=== PATIENT | female | born 1985 | race Caucasian/White ===

== ENCOUNTER 2017-03-23 08:37 | Emergency (ER) | payer OTHER ==
[~2017-03-23] VITALS: Ht 162.6 cm; Wt 68.0 kg
[2017-03-23] MEDS ORDERED: PERCOCET 5-3251 EACH PO (10:35)
== END 2017-03-23 11:06 | disposition home or self-care (01) ==
LOC: ED 08:37
DX: K80.50 Calculus of bile duct without cholangitis or cholecystitis without obstruction (principal); F17.200 Nicotine dependence, unspecified, uncomplicated
CPT/HCPCS: 80053; 83690; 84703; 85025; 96374; 96375; 99284; J1170; J2405